=== PATIENT | male | born 1985 | race Caucasian/White ===

== ENCOUNTER 2022-03-20 12:06 | Emergency (ER) | payer SELFPAY ==
[~2022-03-20] VITALS: Ht 175.3 cm; Wt 80.0 kg
[2022-03-20] MEDS ORDERED: VISTARIL25 MG PO (14:17)
[2022-03-20 15:59] VITALS: BP 137/100
[2022-03-20 16:00] VITALS: BP 130/90
[2022-03-20 17:02] VITALS: BP 100/82
[2022-03-20 17:13] LABS: HEMATOCRIT 42.3 % (39.0-50.0); HEMOGLOBIN 15.2 g/dl (14.0-18.0); IMMATURE GRANULOCYTES 0.2 % (0.0-5.0); MEAN CELL VOLUME 89.8 fL CALC (80.0-100.0); MEAN CORPUSCULAR HGB 32.3 pG CALC (26.0-32.0); MEAN CORPUSCULAR HGB CONC 35.9 g/dL CAL (32.0-36.0); NEUT# 6.11 thou/uL (1.82-7.42); RED BLOOD COUNT 4.71 mill/uL (4.70-6.10)
[2022-03-20 17:23] LABS: ALBUMIN 4.6 g/dL (3.2-5.0); ALKALINE PHOSPHATASE 67 u/l (38-126); ANION GAP 14 (6-22 (CALC)); BILIRUBIN, TOTAL 0.7 mg/dL (0.0-1.4); BUN 17 mg/dL (9-20); BUN/CREATININE RATIO 17 (12-20 (CALC)); CARBON DIOXIDE 26 mmol/l (22-30); CHLORIDE 103 mmol/l (95-108); CPK 84 u/l (52-200); ETHYL ALCOHOL 56 mg/dl (0-30); GFR FOR AFR.AMER. > 60 ML/MIN (>=60 (CALC)); GFR OTHER RACES > 60 ML/MIN (>=60 (CALC)); POTASSIUM 4.6 mmol/l (3.5-5.1); SGOT/AST 47 u/l (17-59); SODIUM 138 mmol/l (137-146); TOTAL PROTEIN 7.3 g/dL (6.3-8.2)
[2022-03-20 17:30] VITALS: BP 127/89
[2022-03-20 18:35] LABS: URINE BILIRUBIN - DIPSTICK NEGATIVE (NEGATIVE); URINE BLOOD DIPSTICK NEGATIVE (NEGATIVE); URINE COLOR YELLOW; URINE GLUCOSE - DIPSTICK NEGATIVE (NEGATIVE); URINE KETONE NEGATIVE (NEGATIVE); URINE LEUK ESTERASE NEGATIVE (NEGATIVE); URINE PROTEIN - DIPSTICK NEGATIVE (NEG-TRACE); URINE UROBILINOGEN - DIPSTICK 0.2 E.U./dL (0.2)
[2022-03-20 18:38] LABS: URINE NITRITE - DIPSTICK NEGATIVE (Negative)
[2022-03-20] MEDS ORDERED: LIBRIUM25 MG PO (19:03)
[2022-03-20 19:05] VITALS: BP 127/89
== END 2022-03-20 19:15 | disposition home or self-care (01) | DRG 897 ==
LOC: ED 12:06
PROVIDERS: Nurse Practitioner
DX: F10.139 Alcohol abuse with withdrawal, unspecified (principal); Y90.2 Blood alcohol level of 40-59 mg/100 ml; F17.210 Nicotine dependence, cigarettes, uncomplicated
CPT/HCPCS: J2060

== ENCOUNTER 2022-06-05 11:20 | Emergency (ER) | payer SELFPAY ==
[~2022-06-05] VITALS: Ht 175.3 cm; Wt 77.1 kg
[2022-06-05] VITALS (11 sets, daily range): BP systolic 112–142; BP diastolic 76–101
[~2022-06-05 11:20] MED LIST: LIBRIUM25 MG PO; VISTARIL25 MG PO
[2022-06-05 12:42] LABS: BASO% 0.4 % (0-3); EOS% 0.9 % (0-8); HEMATOCRIT 47.3 % (39.0-50.0); HEMOGLOBIN 16.6 g/dl (14.0-18.0); IMMATURE GRANULOCYTES 0.2 % (0.0-5.0); LYMPH% 22.2 % (15-41); MEAN CELL VOLUME 89.6 fL CALC (80.0-100.0); MEAN CORPUSCULAR HGB 31.4 pG CALC (26.0-32.0); MEAN CORPUSCULAR HGB CONC 35.1 g/dL CAL (32.0-36.0); MONO% 6.2 % (2-13); NEUT# 6.33 thou/uL (1.82-7.42); NEUT% 70.1 % (42-76); RED BLOOD COUNT 5.28 mill/uL (4.70-6.10); RED CELL DISTRI WIDTH 11.1 % (11.5-15.5)
[2022-06-05 12:49] LABS: ALBUMIN 4.7 g/dL (3.2-5.0); ALKALINE PHOSPHATASE 61 u/l (38-126); ANION GAP 18 (6-22 (CALC)); BILIRUBIN, TOTAL 0.7 mg/dL (0.2-1.3); CARBON DIOXIDE 22 mmol/l (22-30); CHLORIDE 102 mmol/l (95-108); ETHYL ALCOHOL 179 mg/dl (0-30); LIPASE 72 u/l (23-300); SGOT/AST 68 u/l (17-59); SODIUM 138 mmol/l (137-146); TOTAL PROTEIN 7.9 g/dL (6.3-8.2)
[2022-06-05 12:53] LABS: BUN 17 mg/dL (9-20); BUN/CREATININE RATIO 18 (12-20 (CALC)); CREATININE 0.9 mg/dL (0.7-1.3); GFR FOR AFR.AMER. > 60 ML/MIN (>=60 (CALC)); GFR OTHER RACES > 60 ML/MIN (>=60 (CALC))
[2022-06-05 13:49] LABS: URINE BILIRUBIN - DIPSTICK NEGATIVE (NEGATIVE); URINE BLOOD DIPSTICK NEGATIVE (NEGATIVE); URINE COLOR YELLOW; URINE GLUCOSE - DIPSTICK NEGATIVE (NEGATIVE); URINE KETONE NEGATIVE (NEGATIVE); URINE LEUK ESTERASE NEGATIVE (NEGATIVE); URINE NITRITE - DIPSTICK NEGATIVE (Negative); URINE PROTEIN - DIPSTICK NEGATIVE (NEG-TRACE); URINE SPECIFIC GRAVITY 1.015; URINE UROBILINOGEN - DIPSTICK 0.2 E.U./dL (0.2)
[2022-06-05] MEDS ORDERED: CLONIDINE0.1 MG PO (14:23)
[2022-06-05] MEDS ORDERED: LIBRIUM10 MG PO (14:23)
[2022-06-05] MEDS ORDERED: PROTONIX40 M2 PO (14:26)
== END 2022-06-05 14:46 | disposition home or self-care (01) | DRG 897 ==
LOC: ED 11:20
PROVIDERS: Family Medicine
DX: F10.10 Alcohol abuse, uncomplicated (principal); Y90.6 Blood alcohol level of 120-199 mg/100 ml; F17.200 Nicotine dependence, unspecified, uncomplicated
CPT/HCPCS: J2060; S0164